=== PATIENT | male | born 1945 | race Caucasian/White ===

== ENCOUNTER → 2017-03-17 | Outpatient (CLI) | payer BC, MEDICARE ==
[~2017-03-17] MED LIST: AMBIEN PO; ASPIRIN PO; AUGMENTIN PO; BP PILL; CARVEDILOL6.25 MG PO; CRESTOR PO; K-DUR20 ME1 PO; LISINOPRIL PO; LISINOPRIL10 MG PO; NORVASC PO; OMEPRAZOLE40 M1 PO; PRAVASTATIN SOD40 MG PO; PRILOSEC PO; ST. JOSEPH ASPI81 M3 PO; UNKNOWN MEDS; WALGREENS; ZOLPIDEM TARTRA10 M1 PO
--- NOTE | ~2017-03-17 | MR165 ---
[facility] A Service of [facility] RADIOLOGY TEXT RESULTS PATIENT: FEMI BURNETT LOCATION: [facility] : 43 UNIT #: [id number] AGE: [address]: Dawood Kathleen MD SEX: M ORDER DR: [id number] [address] [address] [id number] O MR#: [id number] Acc #: [id number] NAME: FEMI BURNETT : 1945 SEX: M STUDY DATE/TIME: 03/17/2017 14:58 UNIT: [facility] ROOM: STUDY DESCRIPTION: MR Shoulder Wo Contrast Rt Attending Physician: Dawood Kathleen M.D. Referring Physician: Dawood Kathleen M.D. Ordering Physician: Dawood Kathleen M.D. Primary Care Physician: Durga Arrington M.D. [facility] REPORT This report is preliminary unless electronic signature is present. EXAM MRI right shoulder, 03/17/17. COMPARISON Right shoulder radiographs, 02/24/17. HISTORY Order states right shoulder pain. History sheet states no known injury and no shoulder surgery. Increasing right shoulder pain with limited range of motion. Decreased strength. Symptoms worse for the last 6 months. Patient is a meat-cutter by trade, and does repetitive work/overuse with shoulder. FINDINGS There is moderate hypertrophic AC joint arthrosis with capsuloligamentous thickening, osteophyte formation, and minimal articular irregularity. Coracoclavicular and coracoacromial ligaments are intact. There is a full-thickness, full-width supraspinatus tendon tear extending into the anterior leading edge of the infraspinatus tendon. Supraspinatus tendon is delaminated with deeper tendon fibers retracted to the level of the glenohumeral joint space, and thinner superficial fibers retracted over the medial third of the humeral head. The retracted muscle is not atrophic. There is secondary superior humeral migration with near acromial abutment and mild subacromial/subdeltoid bursitis. There is diffuse infraspinatus tendinosis without muscle atrophy. Teres minor is intact. There is atrophy of at least the upper half of the subscapularis muscle in association with essentially a full-width tear with tendon retraction just medial to the glenoid. [facility]. [facility] A Service of [facility] RADIOLOGY TEXT RESULTS PATIENT: FEMI BURNETT LOCATION: [facility] : 43 UNIT #: [id number] AGE: [address]: Dawood Kathleen MD SEX: M ORDER DR: There is medial dislocation of the attenuated longhead biceps tendon. Glenohumeral joint demonstrates a minimal effusion. There is high-grade chondromalacia of the posterior superior glenoid with an adjacent posterior superior labral tear which extends into the posterior/inferior quadrant. Paralabral cysts are present along the posterior mid-glenoid. There is no marrow lesion, fracture, or sizeable loose body. IMPRESSION 1. Massive rotator cuff tear with full-thickness, full-width delaminated supraspinatus tendon tear extending into the anterior leading edge of the infraspinatus tendon. There is also full-thickness, essentially full-width subscapularis tendon tear, detailed above. 2. Partial atrophy of the subscapularis muscle. The retracted supraspinatus muscle is not atrophic. 3. Moderate AC joint arthrosis. 4. High-grade chondromalacia posterior glenoid with a posterior labral tear involving the superior and inferior quadrants and small paralabral cysts. 5. Secondary, subacromial-subdeltoid bursitis. 6. Medially dislocated longhead biceps tendon. Dictated by... Amy Mota M.D. THIS IS AN ELECTRONICALLY VERIFIED REPORT Amy Mota M.D. at 03/19/2017 8:32 AM KAILEE/lyn TD: 03/18/2017 16:55 JOB #: [id number] [facility] REPORT Page 1 of 1
== END | disposition home or self-care (01) ==
LOC: SMRI 14:30
DX: M25.511 Pain in right shoulder (principal); M75.121 Complete rotator cuff tear or rupture of right shoulder, not specified as traumatic; M62.50 Muscle wasting and atrophy, not elsewhere classified, unspecified site; M19.011 Primary osteoarthritis, right shoulder; M94.211 Chondromalacia, right shoulder; S43.431A Superior glenoid labrum lesion of right shoulder, initial encounter; M75.51 Bursitis of right shoulder
CPT/HCPCS: 73221